=== PATIENT | male | born 1990 | race Two or more races ===

== ENCOUNTER 2023-01-25 16:31 | Emergency (ER) | payer SELFPAY ==
[~2023-01-25] VITALS: Ht 152.4 cm; Wt 91.2 kg
--- NOTE | 2023-01-25 16:39 | NUR ---
AT BEDSIDE FOR EVAL
[2023-01-25] MEDS ORDERED: FAMO-131 PO (17:33)
[2023-01-25] MEDS ORDERED: PRED50TA PO (17:33)
[2023-01-25] MEDS ORDERED: DIPH50CA4 PO (17:33)
--- NOTE | 2023-01-25 17:39 | NUR ---
Patient discharged to home in stable condition. Written and verbal after care instructions given. Patient verbalizes understanding of instruction. IV removed. Catheter intact and site benign. Pressure and 4x4 applied to site. No bleeding noted.
[2023-01-25 17:40] VITALS: BP 124/81
== END 2023-01-25 17:40 | disposition home or self-care (01) ==
LOC: ER 17:22
DX: L25.8 Unspecified contact dermatitis due to other agents (principal); T63.441A Toxic effect of venom of bees, accidental (unintentional), initial encounter; Y92.89 Other specified places as the place of occurrence of the external cause